=== PATIENT | male | born 1955 | race Caucasian/White ===

== ENCOUNTER 2017-01-04 17:07 | Emergency (ER) | payer BC, OTHER ==
--- NOTE | 2017-01-04 17:18 | EDM.PDOC ---
ED HPI GENERAL MEDICAL PROBLEM - General Chief Complaint: Neuro Symptoms/Deficits Stated Complaint: STROKE LIKE SYMPTOMS Time Seen by Provider: 01/04/17 17:15 Source of Information: Reports: Patient, Family (spouse) History Limitations: Reports: Other (dysarthria.) - History of Present Illness INITIAL COMMENTS - FREE TEXT/NARRATIVE: 61-year-old male presents to the ED per private vehicle with his driving. Somewhat convoluted history. Patient has had previous CVAs affecting the left side of his body starting back in 2006. At some point time he got placed on Coumadin because of recurrent CVAs. He and his oriented down in [facility] on vacation the last few days. He resides in [facility] which is [place] north [facility]. He is usually able to ambulate with the aid of a cane and get around very well. At about 0600 hrs. this morning he got up in the local motel in [place] and voided with no problems. At 0700 hrs. he was unable to get up from bed due to weakness on the right side. The ambulance was summoned and he was taken to [facility] at that facility had underwent CT of the brain. He was on Coumadin and is reported INR was 1.5 somewhat subtherapeutic. Of note he is not known to be in atrial fibrillation. The story is provided by his suggest that approximately 1030 hrs. he developed marked sudden improvement of his right-sided paresis. He can now walk and had full normal function of his right upper extremity. Of note he is right- hand dominant. Therefore they elected to leave hospital and were discharged with a diagnosis of transient ischemic attack. It's unclear at this point time if he received any treatment such as aspirin etc. reports that along [facility] which is 20-30 miles north [facility] patient started to notice tingling and weakness in his right upper extremity and leg once again. Second problem was that they diagnosed a urinary tract infection while he was in hospital in [place] this morning and was started on Macrobid 100 mg twice a day. However he has severe urinary frequency and had to stop almost every 45 minutes to void on the roadside. At one place they stopped in a gas station he got out and fell to his knees and was unable to get up. 2 strongman from inside the gastric patient came and picked him back up and gotten back into the vehicle. So essentially he has been sitting on the passenger seat with the door open and voiding. Patient's wanted to call the ambulance to get into the closest nearest facility which showed would've been [facility] turning around and going back to [place]. However the patient refused and said will make it home. They arrived in our hospital [facility] in [place] at 1711 hrs. A stroke alert was called. Patient was identified to have a complete right hemiparesis and very mild dysarthria. He looks to his a good portion of the time to answer the questions. His voice is easily understandable. CT of the brain was carried out immediately. When he arrived he was quite apprehensive. HR was 97/min. ECG revealed sinus rythym.02 sats are 99% on room air. BP 173/89. RR is 19. Onset: Today, Sudden Onset Date: 01/04/17 Onset Time: 07:00 (resolution of symptoms about 1030hrs. re occurrence about 11: 30 MST. ) Duration: Hour(s):, Constant Location: Reports: Upper Extremity, Right, Lower Extremity, Right Quality: Reports: Other (no pain. Mild parasthesias Rt hand. Cramps Rt leg intermittently. ) Improves with: Reports: None Worsens with: Reports: None Context: Reports: Other ( was sitting in the car when symptoms returned. ). Denies: Activity, Exercise, Lifting, Sick Contact, Trauma Associated Symptoms: Reports: Weakness ( severe Rt arm and leg. ). Denies: Confusion, Chest Pain, Cough, Diaphoresis, Fever/Chills, Headaches, Loss of Appetite, Malaise, Nausea/Vomiting, Rash, Seizure, Shortness of Breath, Syncope Treatments HEALTH RESEARCHER: Reports: Other (see below) (none.) - Related Data Allergies Allergy/AdvReac Type Severity Reaction Status Date / Time oxycodone Allergy Other Verified 01/04/17 17:30 Past Medical History Cardiovascular History: Reports: High Cholesterol, Hypertension, [place] (No stents have ever been placed.) Respiratory History: Reports: COPD, Sleep Apnea Gastrointestinal History: Reports: GERD Genitourinary History: Reports: BPH, Prostate Disorder, UTI, Recurrent Musculoskeletal History: Reports: Osteoarthritis (involving lower back. Neck and knees. Mild in hips.), Other (See Below) (roatator cuff tendonopathy. Rt has been repaired.) Neurological History: Reports: CVA ( in 2007 with Lt sided paresis. Rehabilitated to getting around with a cane .), Neuropathy, Peripheral, Other ( See Below) (Rt median nerve decompression.). Denies: Head Trauma, Migraines, Seizure Endocrine/Metabolic History: Reports: Diabetes, Type II ( Controlled with oral meds.), Hypothyroidism ( On levothyroxin.), Obesity/BMI 30+ Social & Family History - Living Situation & Occupation Living situation: Reports: , with Spouse Occupation: Retired (forced to retire due to confusion at work. easily mixed up with directions etc. Retired one year ago.) ED ROS GENERAL - Review of Systems Review Of Systems: See Below Constitutional: Reports: Weakness ( Rt side --arm and leg since about 1130 MST today. ). Denies: Fever, Chills HEENT: Reports: Glasses ( for reading. ). Denies: Hearing Loss, Nosebleed Respiratory: Reports: Shortness of Breath ( on exertion. ), Other (has sleep apnea. ). Denies: Wheezing, Pleuritic Chest Pain, Cough, Sputum Cardiovascular: Reports: Blood Pressure Problem ( chronic hypertension. ), Dyspnea on Exertion (chronically. ) Endocrine: Reports: Fatigue, High Glucose GI/Abdominal: Reports: Constipation ( occassional. ) : Reports: Frequency ( diagnosed with UTI in [place] this am. Has frequency about Q 30-45 min. ), Urgency, Other ( known enlarged prostate. ) Musculoskeletal: Reports: Neck Pain, Shoulder Pain, Back Pain. Denies: Leg Pain , Foot Pain, Joint Pain, Joint Swelling Skin: Reports: Bruising ( fairly easy due to being on Coumadin. ) Neurological: Reports: Numbness ( Lt lower extremity. Now also in Rt leg and foot and Rt hand. ), Pre-Existing Deficit ( Lt sided weakness. Waks with aid odf a cane until this am. ), Difficulty Walking, Weakness (new osnet Rt hemiparesis this am at about 0700hrs MST. ). Denies: Dizziness, Headache, Trouble Speaking Psychiatric: Reports: Anxiety, Confusion. Denies: Agitation Hematologic/Lymphatic: Reports: Easy Bruising ED EXAM, NEURO - Physical Exam Exam: See Below Exam Limited By: No Limitations (he looks to his to answer most questions. He has trouble processing questions and answers quickly. Does answer appropriately and with minimal dysarthria.) General Appearance: Alert, WD/WN, Anxious, Moderate Distress Eye Exam: Bilateral Eye: Normal Inspection, PERRL (No gaze palsy. ) Throat/Mouth: Normal Inspection, Normal Lips, Normal Oropharynx, Other ( uvula is midline. Tongue is mildy dry. ) Head Exam: Atraumatic, Normocephalic, Other Neck: Normal Inspection, Tender Lateral ( bilaterally. crepitus with movement. ) . No: Full Range of Motion, Carotid Bruit, Limited Range of Motion, Lymphadenopathy (L), Lymphadenopathy (R), Thyromegaly Respiratory/Chest: Lungs Clear, Respiratory Distress ( mild tachypnea. ), Decreased Breath Sounds ( decreased to the lower 25% . Large man. ). No: Crackles, Rales, Rhonchi, Wheezing Cardiovascular: Regular Rate, Rhythm, No Murmur, No Rub. No: No Edema GI/Abdominal: Normal Bowel Sounds, Soft, Non-Tender, Other ( large abdominal girth precludes ability to palpate solid organs. ) Neurological: Alert, CN II-XII Intact, Oriented x 3, Difficulty Walking (unable. ), Other ( complte facid hemiparesis Rt arm. can wiggle toes on the Rt foot. Unableto generate any contraction in quadraceps. ). No: Normal Mood/Affect, Normal Dorsiflexion, Normal Plantar Flexion, Normal Gait, Normal Reflexes, No Motor/Sensory Deficits DTR: 0: Bicep (R), Tricep (R), Tricep (L), Patella (R), Achilles (R), Achilles ( L), 1+: Bicep (L), Patella (L) Extremities: Pedal Edema ( 1+ Rt and Lt leg.). No: Normal Range of Motion Psychiatric: Anxious Skin Exam: Warm, Dry, Intact, Normal Color, No Rash EKG INTERPRETATION EKG Date: 01/04/17 Time: 17:20 Rhythm: NSR Rate (Beats/Min): 86 Clayton: LAD-Left Clayton Deviation (_9 degrees.) P-Wave: Present QRS: Other (decreased voltage limb leads. Q wave 3 and possibly in lead AVF, Can not rule out an old inferior wall [place].) ST-T: Normal QT: Prolonged (mildy) Course - Vital Signs Last Recorded V/S: Last Vital Signs Temp 36.2 C 01/04/17 17:11 Pulse 86 01/04/17 17:11 Resp 20 01/04/17 17:11 BP 162/97 H 01/04/17 17:11 Pulse Ox 99 01/04/17 17:11 - Orders/Labs/Meds Orders: Active Orders 24 hr Category Date Time Status EKG 12 Lead [EKG Documentation Completion] [RC] STAT Care 01/04/17 18:13 Active Figueroa Catheter Insertion [Insert Urinary Catheter] [OM. Care 01/04/17 19:00 Ordered PC] Q24H Urinary Catheter Assessment [RC] ASDIRECTED Care 01/04/17 19:02 Active Sodium Chloride 0.9% [Normal Saline] 1,000 ml Med 01/04/17 17:30 Active IV ASDIRECTED Medication Orders Sodium Chloride (Normal Saline) 1,000 mls @ 125 mls/hr IV ASDIRECTED JONEL Last Admin: 01/04/17 17:30 Dose: 125 mls/hr Labs: Laboratory Tests 01/04/17 01/04/17 01/04/17 Range/Units 17:20 17:20 17:20 WBC 13.40 H (4.23-9.07) K/mm3 RBC 5.25 (4.63-6.08) M/mm3 Hgb 14.0 (13.7-17.5) gm/L Hct 42.6 (40.1-51.0) % MCV 81.1 (79.0-92.2) fl MCH 26.7 (25.7-32.2) pg MCHC 32.9 (32.2-35.5) g/dl RDW Std Deviation 43.5 (35.1-43.9) fL Plt Count 410 H (163-337) K/mm3 MPV 10.3 (9.4-12.3) fl Neutrophils % (Manual) 77 H (40-60) % Band Neutrophils % 0 (0-10) % Lymphocytes % (Manual) 16 L (20-40) % Atypical Lymphs % 0 % Monocytes % (Manual) 5 (2-10) % Eosinophils % (Manual) 1 (0.8-7.0) % Basophils % (Manual) 1 (0.2-1.2) Platelet Estimate Adequate Plt Morphology Comment Normal Anisocytosis 1+ slight RBC Morph Comment Not Reportable PT 19.0 H (8.0-13.0) SECONDS INR 1.69 APTT 30 (22-36) SECONDS Sodium 140 (136-145) mEq/L Potassium 4.2 (3.5-5.1) mEq/L Chloride 104 (98-107) mEq/L Carbon Dioxide 24 (21-32) mEq/L Anion Gap 16.2 H (5-15) BUN 18 (7-18) mg/dL Creatinine 1.1 (0.7-1.3) mg/dL Est Cr Clr Drug Dosing TNP Estimated GFR (MDRD) > 60 (>60) mL/min BUN/Creatinine Ratio 16.4 (14-18) Glucose 225 H (80-115) mg/dL Calcium 8.9 (8.5-10.1) mg/dL Magnesium 1.8 (1.8-2.4) mg/dl Total Bilirubin 0.4 (0.2-1.0) mg/dL AST 24 (15-37) U/L ALT 44 (16-63) U/L Alkaline Phosphatase 68 (46-116) U/L C-Reactive Protein < 0.2 (<1.0) mg/dL Total Protein 7.5 (6.4-8.2) g/dl Albumin 3.7 (3.4-5.0) g/dl Globulin 3.8 gm/dL Albumin/Globulin Ratio 1.0 (1-2) Meds: Medications Generic Name Dose Route Start Last Admin Trade Name Freq PRN Reason Stop Dose Admin Sodium Chloride 1,000 mls @ 125 mls/hr 01/04/17 17:30 01/04/17 17:30 Normal Saline IV 125 mls/hr ASDIRECTED JONEL Administration - Radiology Interpretation Free Text/Narrative:: 61 year old male presents to the ED per private vehicle -- driving. History of being on vacation in [place] the last few days. Was in [employer] last night. [place] at 0600hrs when he got up to void. At 0700hrs he was unable to get up out of bed due to Rt sided weakness. Previous CVA in 2006 left him with Lt sided weakness. Ambulance summoned and take to [facility]. Diagnosed with TIA after several hours. About 1030 he had spontaneous return of function Rt arm and leg. Able to walk like he did yesterday. No problem using Rt hand which is his dominant hand either. Released a by about 1130hrs. They stopped somewhere to eat and then proceeded back to [place] is not clear at what time he developed re occurrence of Rt sided paresis. Somewhere between 1200 and 1300hrs. ? He was diagnosed with a UTI this am. Has to stop to void every 30 min or so. Was voiding along the roadside. At one point stopped at gas station. He fell to both knees and was unable to get up. Aided by two men from the gas station. He fell twice more after this . managed to get him up and back into the car. Arrived here shortly after 1700hrs and has an obvious severe Rt hemiparesis. CT of brain reveals 3 old infarcts. --posterior Lt frontal , left parietal and a second area within the Lt inferior fronto-temporal lobe. Mild diminished bony ventricular white matter compatable with samll vessel ischemic demyelination. No intracranial bleeding. Nothing acute is identified on non contrast CT. Prognosis is grave. Wit hpre existing Lt sided paresis he will have to be admitted to longterm. Since stroke symptoms have come and gone today felt it worth a try to see if interventional endovascular neurosurgeon could improve his function. Discussed with Dr Gr--neurologist at [facility] in [facility] and he agrees. He accepted the patient in care. He will thus be transported to [place] per airplane to see if anything can be done. Figueroa placed prior to departure due to continued need to void. BP remained about 160/90. Departure - Departure Time of Disposition: 18:55 Disposition: DC/Tfer to Acute Hospital 02 Condition: Serious Clinical Impression: CVA (cerebral vascular accident) Qualifiers: CVA mechanism: thrombosis Precerebral and cerebral artery: middle cerebral artery Laterality of affected vessel: left Qualified Code(s): I63.312 - Cerebral infarction due to thrombosis of left middle cerebral artery - Discharge Information Additional Instructions: Transferred to [facility] to see if any neuro intervention would be possible for him. Dr Gr --neurologist calibration technician has accepted care. - My Orders Last 24 Hours: My Active Orders 01/04/17 17:30 Sodium Chloride 0.9% [Normal Saline] 1,000 ml IV ASDIRECTED 01/04/17 18:13 EKG 12 Lead [EKG Documentation Completion] [RC] STAT 01/04/17 19:00 Figueroa Catheter Insertion [Insert Urinary Catheter] [OM.PC] Q24H 01/04/17 19:02 Urinary Catheter Assessment [RC] ASDIRECTED - Assessment/Plan Last 24 Hours: My Active Orders 01/04/17 17:30 Sodium Chloride 0.9% [Normal Saline] 1,000 ml IV ASDIRECTED 01/04/17 18:13 EKG 12 Lead [EKG Documentation Completion] [RC] STAT 01/04/17 19:00 Figueroa Catheter Insertion [Insert Urinary Catheter] [OM.PC] Q24H 01/04/17 19:02 Urinary Catheter Assessment [RC] ASDIRECTED
[2017-01-04] MEDS ORDERED: Sodium Chloride 0.9% 1,000 ML IV SCH (17:30)
--- NOTE | 2017-01-04 18:20 | CT ---
Head CT Technique: Multiple axial sections were obtained through the brain. Intravenous contrast was not utilized. Comparison: No previous intracranial imaging. Findings: Ventricles along with basal cisterns and sulci over the convexities are mildly to moderately prominent. Low density compatible with old infarcts are noted within the posterior left frontal, left parietal and a second area within the left inferior frontal and temporal region. Mild diminished density is noted within portions of the periventricular white matter which is compatible with small vessel ischemic demyelination change. No evidence of intracranial hemorrhage. No midline shift or mass effect is seen. Incidental ex vacuole enlargement seen of the left lateral ventricle compatible with volume loss on the left side from previous infarcts. Mild mucosal thickening seen within the ethmoid and left maxillary sinus. No acute calvarial abnormality is seen. Atherosclerotic calcification is noted within the carotid siphon. Impression: 1. 3 separate infarcts on the left side which have the appearance of being old. 2. Other incidental findings. Nothing acute is appreciated on noncontrast head CT study. Diagnostic code #2
[2017-01-04 19:32] VITALS: BP 167/93
== END 2017-01-04 18:55 ==
LOC: JD.ED 17:07
DX: I63.312 Cerebral infarction due to thrombosis of left middle cerebral artery (principal); I10 Essential (primary) hypertension; I25.2 Old myocardial infarction; E78.00 Pure hypercholesterolemia, unspecified; J44.9 Chronic obstructive pulmonary disease, unspecified; G47.30 Sleep apnea, unspecified; K21.9 Gastro-esophageal reflux disease without esophagitis; M19.90 Unspecified osteoarthritis, unspecified site; E11.9 Type 2 diabetes mellitus without complications; E66.9 Obesity, unspecified; E03.9 Hypothyroidism, unspecified; Z86.73 Personal history of transient ischemic attack (TIA), and cerebral infarction without residual deficits; Z88.6 Allergy status to analgesic agent
CPT/HCPCS: 36415; 51702; 70450; 80053; 83735; 85025; 85610; 85730; 86140; 93005; 96360; 99285; J7040; 82962

== ENCOUNTER 2019-11-24 16:29 | Emergency (ER) | payer MEDICARE, BC ==
[2019-11-24 16:58] VITALS: BP 121/91; PULSE 68
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
--- NOTE | 2019-11-24 17:48 | US ---
Right lower extremity deep venous ultrasound: Duplex and color Doppler evaluation was obtained of the right common femoral, proximal greater saphenous, superficial femoral, popliteal and posterior tibial veins. Left common femoral vein was also evaluated. Comparison: No prior venous imaging is available. Findings: Normal phasic flow, augmentation and compression is seen. Impression: 1. No evidence of deep venous thrombosis within the right lower extremity or within the left common femoral vein. Diagnostic code #1 This report was dictated in MDT
== END 2019-11-24 18:28 | disposition home or self-care (01) ==
LOC: JD.ED 16:29
DX: R60.0 Localized edema (principal); I69.398 Other sequelae of cerebral infarction; I25.10 Atherosclerotic heart disease of native coronary artery without angina pectoris; I25.2 Old myocardial infarction; J44.9 Chronic obstructive pulmonary disease, unspecified; E78.00 Pure hypercholesterolemia, unspecified; M19.90 Unspecified osteoarthritis, unspecified site; E11.42 Type 2 diabetes mellitus with diabetic polyneuropathy; E03.9 Hypothyroidism, unspecified; Z68.35 Body mass index [BMI] 35.0-35.9, adult; Z79.4 Long term (current) use of insulin; Z79.01 Long term (current) use of anticoagulants
CPT/HCPCS: 36415; 80053; 82550; 83735; 83880; 85025; 85379; 93971-26-RT; 93971-RT; 99284; 99284-25

== ENCOUNTER 2020-08-14 06:57 | Day surgery (SDC) | payer MEDICARE, BC ==
[2020-08-14] MEDS ORDERED: Sodium Chloride 0.9% 10 ML Syringe FLUSH PRN (07:00)
[2020-08-14] MEDS ORDERED: Lactated Ringers 1,000 ML IV SCH (07:00)
[2020-08-14] MEDS ORDERED: Lidocaine 1%/Sod Bicarbonate in NS 8.4% 1 ML Syringe IDERM PRN (07:00)
[2020-08-14] MEDS ORDERED: Lidocaine 1% 4 ML ONE (07:08)
[2020-08-14] MEDS ORDERED: Propofol 200 MG/20 ML SDV ONE (07:09)
[2020-08-14] MEDS ORDERED: fentaNYL 100 MCG/2 ML SDV ONE (07:09)
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
--- NOTE | 2020-08-14 09:15 | PCM.OPNOTE ---
- General Post-Op/Procedure Note Date of Surgery/Procedure: 08/14/20 Operative Procedure(s): EGD and colonoscopy Findings: 1. irregular Z-line 2. Gastritis 3. Gastric antrum ulcer x2 4. Duodenitis 5. Cecal polyp 6. Transverse colon polyp 1.6cm 7. Transverse colon polyps x2 Pre Op Diagnosis: History of adenomatous colon polyp, anemia Post-Op Diagnosis: same Anesthesia Technique: MAC Primary Surgeon: Mariya Garcia Anesthesia Provider: Rosanna Prieto Pathology: 1. Z-line biopsies 2. Gastric antrum ulcer x2 biopsies 3. Duodenum biopsies 4. Cecal polyp 5. Transverse colon polyp 1.6cm 6. Transverse colon polyps x2 Fluid Replacement, Intraop: 650 Complications: none apparent Condition: Good
--- NOTE | 2020-08-14 09:20 | PCM.PRNOTE ---
- Free Text/Narrative Note: Operative Report Date of Procedure: August 14, 2020 Pre Op Diagnosis: History of adenomatous colon polyp, anemia Post-Op Diagnosis: same Operative Procedures: 1. EGD with biopsy 2. Colonoscopy to the cecum Primary Surgeon: Mariya Garcia MD Anesthesia Provider: Rosanna Prieto CRNA Anesthesia Technique: MAC IV Fluid Replacement, Intraop: 650cc crystalloid Output, Urine Amount: none EBL in mLs: none Findings: 1. irregular Z-line 2. Gastritis 3. Gastric antrum ulcer x2 4. Duodenitis 5. Cecal polyp 6. Transverse colon polyp 1.6cm 7. Transverse colon polyps x2 Specimens: 1. Z-line biopsies 2. Gastric antrum ulcer x2 biopsies 3. Duodenum biopsies 4. Cecal polyp 5. Transverse colon polyp 1.6cm 6. Transverse colon polyps x2 Drain/Tubes: None Indication: The patient is a 64-year-old gentleman who presented to the clinic with findings of anemia. He also has a history of an incompletely resected 1.2 cm polyp in the transverse colon. He was recommended to have a repeat endoscopy for completion resection of this polyp. The patient was consented for an EGD and colonoscopy. Risks of bleeding, and perforation were discussed, and the patient agreed to the risks and wished to proceed. Description of the procedure: The patient was taken back to the endoscopy suite, and placed in the left lateral decubitus position. A bite block was placed. The patient was sedated with MAC anesthesia. The Olympus video endoscope was inserted into the oropharynx and guided under direct vision into the esophagus, stomach, and duodenum. The duodenal bulb and second portion of the duodenum were examined and there was erythema and friability noted in the duodenal bulb consistent with duodenitis. Biopsies were taken with a cold biopsy forceps. The gastric antrum was inspected and cold biopsy forceps were used to take tissue samples for H. pylori. Patient had 2 ulcers in the gastric antrum measuring approximately 1 cm and 1.5 cm. The biopsies that were taken were taken of the ulcerated tissue. The scope was withdrawn to the stomach and retroflexed. There was no increased fluid, food or secretions in the upper gastrointestinal tract. There were findings of gastritis. No erosions or ulcers were noted. The scope was withdrawn to the esophagus. The patient did have an irregular GE junction, which was equivocal for Barretts esophagus changes. Biopsies were taken in 4 quadrants using a cold biopsy forceps. The endoscope was then withdrawn. Next, anorectal examination was performed. No lesions, masses or hemorrhoids were noted externally or on palpation. The scope was placed into the rectum and advanced to cecum. Upon reaching the cecum, and the patients cecum was entered. There was moderate tortuosity of the colon resulting in some looping of the colonoscope, external abdominal pressure was necessary to reach the cecum.. The ileocecal valve was well visualized and the appendiceal orifice identified. At this point, the scope was slowly withdrawn, paying attention to the mucosa. The patient had good bowel prep, 85-90% of the mucosa was visible after washing and suctioning. A 6 mm semipedunculated polyp was noted in the cecum and removed with a jumbo cold biopsy forceps as well as hot snare. The scope was further withdrawn and the previously tattooed large transverse colon polyp was again identified. It measured approximately 1.6 cm. Portion of this polyp was removed using the hot snare. The remainder of the polyp was removed using a jumbo cold biopsy forceps. Patient all 5 mm polyp was noted adjacent to this polyp on in different fold. This was removed using a jumbo cold biopsy forceps. An additional 3 mm polyp was noted elsewhere in the transverse colon removed using a jumbo cold biopsy forceps. In the rectum, scope was retroflexed and some hemorrhoidal tissue was noted. The scope was placed back in the lumen and excess air was aspirated. The scope was removed. The patient tolerated the procedure very well. Complications: None apparent Condition: The patient was transported to PACU in stable condition. Mariya Garcia MD General Surgery
--- NOTE | 2020-08-14 09:21 | PCM48HPAN ---
Post Anesthesia Note - EVALUATION WITHIN 48HRS OF ANESTHETIC Vital Signs in Normal Range: Yes Patient Participated in Evaluation: Yes Respiratory Function Stable: Yes Airway Patent: Yes Cardiovascular Function Stable: Yes Hydration Status Stable: Yes Pain Control Satisfactory: Yes Nausea and Vomiting Control Satisfactory: Yes Mental Status Recovered: Yes Vital Signs: Last Vital Signs Temp 36.3 C 08/14/20 06:45 Pulse 66 08/14/20 06:45 Resp 16 08/14/20 06:45 BP 128/59 L 08/14/20 06:45 Pulse Ox 96 08/14/20 06:45
[2020-08-14 10:20] VITALS: BP 121/58; PULSE 67
== END 2020-08-14 15:40 | disposition home or self-care (01) ==
LOC: JD.SDS 06:57
PROVIDERS: ATTEND Surgery
DX: D12.0 Benign neoplasm of cecum (principal); D12.3 Benign neoplasm of transverse colon; K29.50 Unspecified chronic gastritis without bleeding; D64.9 Anemia, unspecified; K31.89 Other diseases of stomach and duodenum; K25.9 Gastric ulcer, unspecified as acute or chronic, without hemorrhage or perforation; K29.80 Duodenitis without bleeding; I10 Essential (primary) hypertension; E78.2 Mixed hyperlipidemia; E11.9 Type 2 diabetes mellitus without complications; I25.2 Old myocardial infarction; I48.91 Unspecified atrial fibrillation; E03.9 Hypothyroidism, unspecified; E66.9 Obesity, unspecified; Z86.73 Personal history of transient ischemic attack (TIA), and cerebral infarction without residual deficits; Z98.890 Other specified postprocedural states; Z79.4 Long term (current) use of insulin; Z79.899 Other long term (current) drug therapy; Z88.5 Allergy status to narcotic agent; Z87.891 Personal history of nicotine dependence; Z79.01 Long term (current) use of anticoagulants; Z79.890 Hormone replacement therapy; Z68.41 Body mass index [BMI] 40.0-44.9, adult
CPT/HCPCS: 43239; 45380; 82962; J2001; J2704; J3010; J7120; 00813; 88305

== ENCOUNTER 2021-03-18 17:07 | Emergency (ER) | payer MEDICARE, BC ==
[2021-03-18 17:33] VITALS: BP 110/68; PULSE 75
--- NOTE | 2021-03-18 19:33 | EDM.PDOC ---
ED HPI GENERAL MEDICAL PROBLEM - General Chief Complaint: General Stated Complaint: SENT BY [facility] Time Seen by Provider: 03/18/21 18:11 Source of Information: Reports: Patient, Significant Other (Girlfriend) History Limitations: Reports: Altered Mental Status (Patient somewhat confused, a poor historian) - History of Present Illness INITIAL COMMENTS - FREE TEXT/NARRATIVE: Mr. Cisse is a very pleasant 65-year-old gentleman with a past medical history significant for stage IV pancreatic cancer, on chemotherapy, most recently this past 03/12/2021, who now presents to the ED, sent over from the [facility], for decreased oral intake, increased generalized weakness, and decreased urine output since proximately 03/14/2021. At the [facility] center, a CBC demonstrated an H/H modestly depressed at 9.8/29.4, and a CMP found hyponatremia of 130, a bicarbonate depressed at 18, a BUN/Cr elevated at 37/2.25, and hyperglycemia of 302. His TBil was elevated at 2.0, his AST/ALT elevated at 225/160, respectively, and his alkaline phosphatase elevated at 292. He was apparently given IV fluid, but no medications, then sent here because they thought he might have an infection. The patient denies having a recent fever, chills, cough, dyspnea, chest pain, palpitations, nausea, vomiting, or diarrhea, so it is unclear why they thought he might have an infection. Here in the ED, the patient is found to be hemodynamically stable, afebrile, saturating 97% on room air. Prior to Wednesday, the patient denies having a recent fever, chills, sore throat, ear pain, nasal or sinus congestion, cough, dyspnea, chest pain, palpitations, nausea, vomiting, constipation, diarrhea, abdominal pain, urinary symptoms, recent weight gain or weight loss, recent bloody bowel movements or black bowel movements, recent joint aches, headaches, or rashes. The patient's PCP is Dr. Kerwin Upton. His Oncologist is Dr. Milo Parker. His Certified Medical Technician is Dr. Gerard Dyson. His Cardiovascular Surgeon is Dr. Tony Marr. His Engineering Supplies Sales is Dr. Evangelista Clifton. He has received 1 ([employer]) COVID vaccination. - Related Data Allergies Allergy/AdvReac Type Severity Reaction Status Date / Time oxycodone Allergy Severe Other Verified 03/18/21 17:33 Home Meds: Home Meds Acetaminophen [Tylenol] 650 mg PO Q6H PRN 01/31/19 [History] Ascorbic Acid [Vitamin C] 500 mg PO DAILY 01/31/19 [History] Aspirin 81 mg PO DAILY 01/31/19 [History] Gabapentin [Neurontin] 300 mg PO TID 01/31/19 [History] Insulin Aspart [NovoLOG] 1 dose SQ QID 01/31/19 [History] Insulin Glarg,Human.Rec.Analog [Lantus Solostar] 50 units SQ BEDTIME 01/31/19 [History] Lactobacillus Combo No.10 [Probiotic] 1 cap PO DAILY 01/31/19 [History] Levothyroxine [Synthroid] 50 mcg PO DAILY 01/31/19 [History] Lisinopril 40 mg PO DAILY 01/31/19 [History] Mirabegron [Myrbetriq] 50 mg PO DAILY 01/31/19 [History] PARoxetine HCL [Paroxetine HCl] 40 mg PO DAILY 01/31/19 [History] Rosuvastatin Calcium 20 mg PO DAILY 01/31/19 [History] polyethylene glycoL 3350 [MiraLAX] 17 gm PO BID 01/31/19 [History] Metoprolol Succinate [Toprol XL] 25 mg PO DAILY 11/24/19 [History] Spironolactone [Aldactone] 25 mg PO DAILY 11/24/19 [History] Hydrocortisone [Hydrocortisone 1% Crm] 1 dose TOP BID PRN 08/13/20 [History] Mometasone Furoate 1 dose TOP BID 08/13/20 [History] Apixaban [Eliquis] 5 mg PO BID #0 08/14/20 [Rx] Omeprazole 20 mg PO DAILY #90 tablet. 08/14/20 [Rx] Baclofen 10 mg PO TID 03/18/21 [History] nitrofurantoin macrocrystaL [Nitrofurantoin] 1 cap PO Q12H #14 capsule 03/18/21 [Rx] traMADol [Ultram] 50 mg PO Q6H PRN 03/18/21 [History] Past Medical History HEENT History: Reports: Impaired Vision (wears glasses), Other (See Below) Cardiovascular History: Reports: High Cholesterol, Hypertension, PVD Respiratory History: Reports: Sleep Apnea (nightly CPAP) Gastrointestinal History: Reports: Colon Polyp, GERD, PUD Genitourinary History: Reports: BPH, Neurogenic Bladder Musculoskeletal History: Reports: Osteoarthritis Neurological History: Reports: CVA (left, x 2, -> right hemiparesis, dysarthric speech) Endocrine/Metabolic History: Reports: Diabetes, Type II, Hypothyroidism, Obesity/BMI 30+ Oncologic (Cancer) History: Reports: Pancreatic (Stage IV, on CTx), Squamous Cell Carcinoma (nose) - Past Surgical History HEENT Surgical History: Reports: Cataract Surgery (bilateral) Cardiovascular Surgical History: Reports: Other (See Below) (Loop recorder) GI Surgical History: Reports: Colonoscopy (x 2), EGD (x 1) Musculoskeletal Surgical History: Reports: Carpal Tunnel (right only), Shoulder Surgery (right, arthroscopic) Social & Family History - Tobacco Use Tobacco Use Status *Q: Former Tobacco User Years of Tobacco use: 25 Packs/Tins Daily: 1 Month/Year Tobacco Last Used: Quit 1998 Tobacco Use Comment: Started smoking 1974 Second Hand Smoke Exposure: No - Caffeine Use Caffeine Use: Reports: Soda, Tea - Alcohol Use Alcohol Use History: No - Recreational Drug Use Recreational Drug Use: No - Living Situation & Occupation Living situation: Reports: , with Significant Other (Girlfriend) Occupation: Retired (forced to retire due to confusion at work. easily mixed up with directions etc. Retired one year ago.) ED ROS GENERAL - Review of Systems Review Of Systems: Comprehensive ROS is negative, except as noted in HPI. ED EXAM, GENERAL - Physical Exam Exam: See Below Exam Limited By: No Limitations General Appearance: Alert, WD/WN, No Apparent Distress Eye Exam: Bilateral Eye: EOMI, Normal Inspection Ears: Normal External Exam, Hearing Grossly Normal Nose: Normal Inspection Throat/Mouth: Normal Inspection, Normal Lips, Normal Voice, No Airway Compromise Head: Atraumatic, Normocephalic Neck: Normal Inspection, Full Range of Motion Respiratory/Chest: No Respiratory Distress, Lungs Clear, Normal Breath Sounds, No Accessory Muscle Use Cardiovascular: Normal Peripheral Pulses, Regular Rate, Rhythm, No Gallop, No JVD, No Murmur, No Rub Peripheral Pulses: 3+: Radial (L), Radial (R) GI/Abdominal: Normal Bowel Sounds, Soft, No Organomegaly, No Distention, No Abnormal Bruit, No Mass, Tender (Mild, generalized, non-focal) Back Exam: Normal Inspection, Full Range of Motion, NT Extremities: Normal Inspection, Normal Range of Motion, Normal Capillary Refill, Other (Trace to 1+ pretibial edema bilaterally. Healing ulcer to dorsomedial right 2nd toe.) Neurological: Alert, Confused (mild), Other (Right hemiparesis) Psychiatric: Normal Affect Skin Exam: Warm, Dry, Intact, Normal Color, No Rash #1 Interpretation EKG Date: 03/18/21 Time: 19:35 Rhythm: NSR Rate (Beats/Min): 72 [place]: Normal P-Wave: Present QRS: Normal ST-T: Normal QT: Normal Comparison: No Change (01/04/2017) Course - Vital Signs Last Recorded V/S: Last Vital Signs Temp 36.9 C 03/18/21 17:27 Pulse 75 03/18/21 17:27 Resp 16 03/18/21 17:27 BP 110/68 03/18/21 17:27 Pulse Ox 97 03/18/21 17:27 Orthostatic Blood Pressure [ 106/68 Sitting] Orthostatic Blood Pressure [ 109/59 Supine] - Orders/Labs/Meds Labs: Laboratory Tests 03/18/21 03/18/21 03/18/21 Range/Units 19:40 19:40 19:40 WBC 7.55 (4.23-9.07) K/mm3 RBC 4.13 L (4.63-6.08) M/mm3 Hgb 11.0 L D (13.7-17.5) gm/dl Hct 34.4 L (40.1-51.0) % MCV 83.3 (79.0-92.2) fl MCH 26.6 (25.7-32.2) pg MCHC 32.0 L (32.2-35.5) g/dl RDW Std Deviation 44.1 H (35.1-43.9) fL Plt Count 222 D (163-337) K/mm3 MPV 11.9 (9.4-12.3) fl Neutrophils % (Manual) 82 H (40-60) % Band Neutrophils % 0 (0-10) % Lymphocytes % (Manual) 4 L (20-40) % Atypical Lymphs % 0 % Monocytes % (Manual) 13 H (2-10) % Eosinophils % (Manual) 0 L (0.8-7.0) % Basophils % (Manual) 1 (0.2-1.2) Toxic Granulation Few Platelet Estimate Adequate Plt Morphology Comment See note Smear Path Review Puncture Site ABG pH (7.35-7.45) ABG pCO2 (35.0-45.0) mmHg ABG pO2 (80.0-100.0) mmHg ABG HCO3 (22.0-26.0) meq/L ABG O2 Saturation (96.0-97.0) % ABG Base Excess (-2-2.0) Fabricio Test A-a Gradient mmHg O2 Delivery Device Oxygen Flow Rate FiO2 (21.00-100.00) % Blood Gas Comments Sodium 131 L (136-145) mEq/L Potassium 5.2 H (3.5-5.1) mEq/L Chloride 97 L (98-107) mEq/L Carbon Dioxide 24 (21-32) mEq/L Anion Gap 15.2 H (5-15) BUN 39 H (7-18) mg/dL Creatinine 2.3 H (0.7-1.3) mg/dL Est Cr Clr Drug Dosing 34.21 mL/min Estimated GFR (MDRD) 29 (>60) mL/min BUN/Creatinine Ratio 17.0 (14-18) Glucose 346 H (70-99) mg/dL Lactic Acid 2.0 (0.4-2.0) mmol/L Calcium 8.4 L (8.5-10.1) mg/dL Magnesium 2.4 (1.8-2.4) mg/dL Total Bilirubin 1.9 H (0.2-1.0) mg/dL AST 239 H (15-37) U/L ALT 195 H (16-63) U/L Alkaline Phosphatase 323 H (46-116) U/L Troponin I < 0.017 (0.00-0.056) ng/mL Total Protein 7.2 (6.4-8.2) g/dl Albumin 2.1 L (3.4-5.0) g/dl Globulin 5.1 gm/dL Albumin/Globulin Ratio 0.4 L (1-2) TSH 3rd Generation 2.330 (0.358-3.74) uIU/mL Urine Color (Yellow) Urine Appearance (Clear) Urine pH (5.0-8.0) Ur Specific Wright (1.005-1.030) Urine Protein (Negative) Urine Glucose (UA) (Negative) Urine Ketones (Negative) Urine Occult Blood (Negative) Urine Nitrite (Negative) Urine Bilirubin (Negative) Urine Urobilinogen (0.2-1.0) Ur Leukocyte Esterase (Negative) Urine RBC (0-5) /hpf Urine WBC (0-5) /hpf Urine WBC Clumps (NOT SEEN) /hpf Ur Squamous Epith Cells (0-5) /hpf Urine Bacteria (FEW) /hpf Urine Mucus (FEW) /hpf SARS-CoV-2 RNA (NURY) (NEGATIVE) Slides for Path Review 03/18/21 03/18/21 03/18/21 Range/Units 19:40 19:54 20:53 WBC (4.23-9.07) K/mm3 RBC (4.63-6.08) M/mm3 Hgb (13.7-17.5) gm/dl Hct (40.1-51.0) % MCV (79.0-92.2) fl MCH (25.7-32.2) pg MCHC (32.2-35.5) g/dl RDW Std Deviation (35.1-43.9) fL Plt Count (163-337) K/mm3 MPV (9.4-12.3) fl Neutrophils % (Manual) (40-60) % Band Neutrophils % (0-10) % Lymphocytes % (Manual) (20-40) % Atypical Lymphs % % Monocytes % (Manual) (2-10) % Eosinophils % (Manual) (0.8-7.0) % Basophils % (Manual) (0.2-1.2) Toxic Granulation Platelet Estimate Plt Morphology Comment Smear Path Review Path rpt Puncture Site Lt radial ABG pH 7.34 L (7.35-7.45) ABG pCO2 45.6 H (35.0-45.0) mmHg ABG pO2 29.0 L* (80.0-100.0) mmHg ABG HCO3 23.9 (22.0-26.0) meq/L ABG O2 Saturation 43.9 L (96.0-97.0) % ABG Base Excess -1.4 (-2-2.0) Fabricio Test Positive A-a Gradient 64 mmHg O2 Delivery Device Room air Oxygen Flow Rate 0.0 FiO2 21.00 (21.00-100.00) % Blood Gas Comments Mixed venous Sodium (136-145) mEq/L Potassium (3.5-5.1) mEq/L Chloride (98-107) mEq/L Carbon Dioxide (21-32) mEq/L Anion Gap (5-15) BUN (7-18) mg/dL Creatinine (0.7-1.3) mg/dL Est Cr Clr Drug Dosing mL/min Estimated GFR (MDRD) (>60) mL/min BUN/Creatinine Ratio (14-18) Glucose (70-99) mg/dL Lactic Acid (0.4-2.0) mmol/L Calcium (8.5-10.1) mg/dL Magnesium (1.8-2.4) mg/dL Total Bilirubin (0.2-1.0) mg/dL AST (15-37) U/L ALT (16-63) U/L Alkaline Phosphatase (46-116) U/L Troponin I (0.00-0.056) ng/mL Total Protein (6.4-8.2) g/dl Albumin (3.4-5.0) g/dl Globulin gm/dL Albumin/Globulin Ratio (1-2) TSH 3rd Generation (0.358-3.74) uIU/mL Urine Color (Yellow) Urine Appearance (Clear) Urine pH (5.0-8.0) Ur Specific Wright (1.005-1.030) Urine Protein (Negative) Urine Glucose (UA) (Negative) Urine Ketones (Negative) Urine Occult Blood (Negative) Urine Nitrite (Negative) Urine Bilirubin (Negative) Urine Urobilinogen (0.2-1.0) Ur Leukocyte Esterase (Negative) Urine RBC (0-5) /hpf Urine WBC (0-5) /hpf Urine WBC Clumps (NOT SEEN) /hpf Ur Squamous Epith Cells (0-5) /hpf Urine Bacteria (FEW) /hpf Urine Mucus (FEW) /hpf SARS-CoV-2 RNA (NURY) Negative (NEGATIVE) Slides for Path Review 03/18/21 Range/Units 21:10 WBC (4.23-9.07) K/mm3 RBC (4.63-6.08) M/mm3 Hgb (13.7-17.5) gm/dl Hct (40.1-51.0) % MCV (79.0-92.2) fl MCH (25.7-32.2) pg MCHC (32.2-35.5) g/dl RDW Std Deviation (35.1-43.9) fL Plt Count (163-337) K/mm3 MPV (9.4-12.3) fl Neutrophils % (Manual) (40-60) % Band Neutrophils % (0-10) % Lymphocytes % (Manual) (20-40) % Atypical Lymphs % % Monocytes % (Manual) (2-10) % Eosinophils % (Manual) (0.8-7.0) % Basophils % (Manual) (0.2-1.2) Toxic Granulation Platelet Estimate Plt Morphology Comment Smear Path Review Puncture Site ABG pH (7.35-7.45) ABG pCO2 (35.0-45.0) mmHg ABG pO2 (80.0-100.0) mmHg ABG HCO3 (22.0-26.0) meq/L ABG O2 Saturation (96.0-97.0) % ABG Base Excess (-2-2.0) Fabricio Test A-a Gradient mmHg O2 Delivery Device Oxygen Flow Rate FiO2 (21.00-100.00) % Blood Gas Comments Sodium (136-145) mEq/L Potassium (3.5-5.1) mEq/L Chloride (98-107) mEq/L Carbon Dioxide (21-32) mEq/L Anion Gap (5-15) BUN (7-18) mg/dL Creatinine (0.7-1.3) mg/dL Est Cr Clr Drug Dosing mL/min Estimated GFR (MDRD) (>60) mL/min BUN/Creatinine Ratio (14-18) Glucose (70-99) mg/dL Lactic Acid (0.4-2.0) mmol/L Calcium (8.5-10.1) mg/dL Magnesium (1.8-2.4) mg/dL Total Bilirubin (0.2-1.0) mg/dL AST (15-37) U/L ALT (16-63) U/L Alkaline Phosphatase (46-116) U/L Troponin I (0.00-0.056) ng/mL Total Protein (6.4-8.2) g/dl Albumin (3.4-5.0) g/dl Globulin gm/dL Albumin/Globulin Ratio (1-2) TSH 3rd Generation (0.358-3.74) uIU/mL Urine Color Yellow (Yellow) Urine Appearance Clear (Clear) Urine pH 6.0 (5.0-8.0) Ur Specific Wright 1.015 (1.005-1.030) Urine Protein 2+ H (Negative) Urine Glucose (UA) Trace H (Negative) Urine Ketones Negative (Negative) Urine Occult Blood 2+ H (Negative) Urine Nitrite Negative (Negative) Urine Bilirubin Negative (Negative) Urine Urobilinogen 1.0 (0.2-1.0) Ur Leukocyte Esterase 3+ H (Negative) Urine RBC 10-20 H (0-5) /hpf Urine WBC 30-40 H (0-5) /hpf Urine WBC Clumps Occasional (NOT SEEN) /hpf Ur Squamous Epith Cells 0-5 (0-5) /hpf Urine Bacteria Many H (FEW) /hpf Urine Mucus Few (FEW) /hpf SARS-CoV-2 RNA (NURY) (NEGATIVE) Slides for Path Review Meds: Medications Discontinued Medications Generic Name Dose Route Start Last Admin Trade Name Freq PRN Reason Stop Dose Admin Lactated Ringer's 1,000 mls @ 999 mls/hr 03/18/21 19:23 03/18/21 20:08 Ringers, Lactated IV 03/18/21 20:23 999 mls/hr .BOLUS ONE Administration Nitrofurantoin Macrocrystals 100 mg 03/18/21 22:34 03/18/21 23:00 Nitrofurantoin Monohydrate/Macrocrystalline 100 Mg Cap PO 03/18/21 22:35 100 mg ONETIME STA Administration - Re-Assessments/Exams Free Text/Narrative Re-Assessment/Exam: 03/18/21 19:27 As above, the patient had a nonhealing right 2nd toe ulcer, therefore went for a CT angiogram to look for peripheral vascular disease, but was found to have evidence of metastatic cancer. A subsequent biopsy confirmed stage IV pancreat ic adenocarcinoma. The patient is receiving chemotherapy. On or about this past Wednesday, he developed decreased oral intake, decreased urine output, and increased generalized weakness. He was seen at the [facility] this afternoon, where blood work found renal insufficiency and elevated LFTs. He was apparently given IV fluid, but no medications, then sent here because they thought he might have an infection, although it is unclear why. Here in the ED, his vital signs are normal. His physical exam is remarkable for mild generalized abdominal tenderness, which he states is normal for him. The ulcer on his right 2nd toe appears to be healing. I see no obvious sign of an infection, however, I have ordered a work-up and includes orthostatics, numerous blood tests, 2 sets of blood cultures, an ABG, a urinalysis by quick catheter, a swab for the SARS-CoV-2 virus, a portable chest x-ray, and an ECG. In the meantime, the patient will be given IV fluid. 03/18/21 21:15 Portable chest radiograph reviewed. Less than optimal inspiratory effort. The cardiac silhouette is within normal limits. No pulmonary vascular congestion. No pleural effusions seen on this AP view. No focal infiltrate, although there is some platelike atelectasis horizontal fissure at the. No pneumothorax. A left-sided loop recorder is noted. Formal read per the Radiologist pending. The patient's CBC is remarkable for an H/H mildly depressed at 11.0/34.4, and is otherwise unremarkable. His CMP is remarkable for hyponatremia of 131, mild hyperkalemia 5.2, a BUN/Cr elevated at 39/2.3, and hyperglycemia of 346. His TBil is elevated at 1.9, his AST/ALT are elevated at 239/195, and his alkaline phosphatase elevated at 323, with remainder of his CMP being unremarkable. His magnesium level is within normal limits at 2.4. His lactic acid level is within normal limits at 2.0. His TSH is within normal limits at 2.330. His troponin is undetectably low. The patient's ABG is actually a VBG, and is interpreted as a combined respiratory and metabolic acidosis. 03/18/21 21:25 Orthostatics were obtained between supine and sitting only, as the patient is unable to stand. He he is not orthostatic. 03/18/21 22:25 The patient's urinalysis is remarkable for 2+ occult blood with 10-20 RBCs, 3+ leukocyte esterase with 30-40 WBCs, nitrate negative with many bacteria, and 0-5 squamous epithelial cells. His swab for the SARS-CoV-2 virus is negative. Based on the above, I have ordered a urine culture, and will need to start the patient on an antibiotic. 03/18/21 22:34 Test results discussed with the patient and his girlfriend. As above, mirna's work-up found mild hyponatremia, renal insufficiency, hyperglycemia, elevated LFTs, and cystitis. I explained renal insufficiency is often due to dehydration or intravascular volume depletion, however, in this case, that does not appear to be the case. His renal insufficiency may be the result of his chemotherapy, as may his elevated LFTs. His girlfriend tells me that the patient has not been on antibiotics in months, therefore I will start him on nitrofurantoin and prescribe a 7-day course. The patient will need to stay adequately hydrated - I recommended Pedialyte, Gatorade, or Powerade. I would like the patient to follow-up with Dr. Proctor this coming Wednesday, to check on his urine culture results. Departure - Departure Time of Disposition: 22:37 Disposition: Home, Self-Care 01 Condition: Good Clinical Impression: Renal insufficiency, Elevated LFTs, Hyperglycemia due to type 2 diabetes mellitus, Cystitis - Discharge Information *PRESCRIPTION DRUG MONITORING PROGRAM REVIEWED*: Not Applicable *COPY OF PRESCRIPTION DRUG MONITORING REPORT IN PATIENT [place]: Not Applicable Prescriptions: nitrofurantoin macrocrystaL [Nitrofurantoin] 1 cap PO Q12H #14 capsule Instructions: Urinary Tract Infection, Adult Referrals: Kerwin Upton MD [Primary Care Provider] - Milo Parker MD [Ordering Only Provider] - Gerard Dyson DO [Ordering Only Provider] - Tony Marr MD, PhD [Consulting Physician] - Forms: ED Department Discharge Additional Instructions: You were seen in the emergency room for decreased oral intake, decreased urine output and increased generalized weakness since Wednesday. Work-up in the ER included positional blood pressure checks, numerous blood te sts, 2 sets of blood cultures, a venous blood gas, a urinalysis, a swab for the SARS-CoV-2 virus, a chest x-ray, and an ECG. Your work-up found that you have some renal insufficiency, that your blood sugar was elevated at 346, that your liver enzymes are elevated, and that you have a urinary tract infection. As discussed, there is not much that we can do for your kidney function or liver enzymes in the ER. With respect to your high blood sugar, we recommend that you take your usual diabetes medications. You have been started on the antibiotic nitrofurantoin, and a prescription for nitrofurantoin has been sent to the [facility]. Take 1 tablet of nitrofurantoin every 12 hours, starting tomorrow morning, 03/19/2021, as prescribed. Finish the entire prescription unless told otherwise by your doctor. Stay adequately hydrated. Pedialyte, Gatorade, or Powerade are best. Please follow-up with your PCP, Dr. Kerwin Upton, this coming 03/21/2021, to check on your urine culture results. If any other problems, please do not hesitate to return to the ER. Sepsis Event Note (ED) - Evaluation Sepsis Screening Result: No Definite Risk
[2021-03-18] MEDS: Lactated Ringers 1,000 ML IV ONE (20:08)
[2021-03-18] MEDS: Nitrofurantoin Monohydrate/Macrocrystalline 100 MG Cap PO STA (23:00)
--- NOTE | 2021-03-19 08:13 | CR ---
Chest: Portable view of the chest were obtained. Comparison: Prior chest x-ray of 07/10/13. Heart size and mediastinum are within normal limits for portable technique. Atelectasis is seen within the right lung base. Lungs otherwise are clear. Bony structures show nothing acute. Impression: 1. Atelectasis within the right lung base. 2. Nothing acute is otherwise seen on portable chest x-ray. Diagnostic code #2
== END 2021-03-18 23:11 | disposition home or self-care (01) ==
LOC: JD.ED 17:07
DX: N30.90 Cystitis, unspecified without hematuria (principal); E11.65 Type 2 diabetes mellitus with hyperglycemia; N28.9 Disorder of kidney and ureter, unspecified; R79.89 Other specified abnormal findings of blood chemistry; E87.2 Acidosis; E78.00 Pure hypercholesterolemia, unspecified; I10 Essential (primary) hypertension; K21.9 Gastro-esophageal reflux disease without esophagitis; E11.9 Type 2 diabetes mellitus without complications; E03.9 Hypothyroidism, unspecified; E66.9 Obesity, unspecified; Z68.41 Body mass index [BMI] 40.0-44.9, adult; Z87.891 Personal history of nicotine dependence; Z20.822 Contact with and (suspected) exposure to COVID-19; Z86.73 Personal history of transient ischemic attack (TIA), and cerebral infarction without residual deficits; Z88.5 Allergy status to narcotic agent; Z79.4 Long term (current) use of insulin; Z79.01 Long term (current) use of anticoagulants; Z79.899 Other long term (current) drug therapy
CPT/HCPCS: 36415; 36600; 71045; 80053; 81001; 82803; 83605; 83735; 84443; 84484; 85007; 85027; 87040; 87086; 87088; 87186; 99285; A9270; J7120; U0002; 93010; 99284